=== PATIENT | male | born 1990 | race Caucasian/White ===

== ENCOUNTER 2020-09-11 08:32 | Emergency (ER) | payer OTHER ==
[~2020-09-11 08:32] MED LIST: BENTYL 20MG TAB20 MG PO; CARAFATE1 GM PO; HALDOL 5 MG TAB5 MG PO; MAALOX ADVANCE355 ML PO; OMEPRAZOLE20 M1 PO; ONDANSETRON ODT4 MG PO; PANTOPRAZOLE SO40 MG PO; PHENERGAN 12.12.5 M1 PO; PHENERGAN 12.12.5 MG PR; PHENERGAN 25 MG25 M1 PO; PHENERGAN 25 MG25 MG PR; PHENERGAN 50 MG50 MG PR; PHENERGAN25 MG/1 M1 TOP; PROTONIX 20 MG20 MG PO; PROTONIX40 MG PO; ZOFRAN ODT 4 MG4 MG PO; ZOFRAN ODT 4 MG4 MG SL; ZOFRAN4 MG PO; ZOFRAN8 MG PO
[2020-09-11 09:14] LABS: HEMOGLOBIN 12.4 gm/dl (14.0-17.5); RED BLOOD COUNT 4.25 M/UL (4.20-5.50); WHITE BLOOD COUNT 6.1 K/UL (4.5-11.0)
[2020-09-11 09:50] LABS: BUN/CREATININE RATIO 11 (0-10)
[2020-09-11] MEDS ORDERED: ZOFRAN 4 MG TAB4 MG PO (10:49)
== END 2020-09-11 11:05 | disposition home or self-care (01) ==
LOC: ER1 08:32
PROVIDERS: Emergency Medicine
DX: R10.9 Unspecified abdominal pain (principal); R11.10 Vomiting, unspecified; Z87.19 Personal history of other diseases of the digestive system
CPT/HCPCS: 80053; 81001; 83690; 85025; 96374; 99284; J2405; J7030

== ENCOUNTER 2020-09-14 09:22 | Emergency (ER) | payer OTHER ==
[~2020-09-14 09:22] MED LIST changes: +ZOFRAN 4 MG TAB4 MG PO
[2020-09-14 09:57] LABS: HEMOGLOBIN 12.9 gm/dl (14.0-17.5); RED BLOOD COUNT 4.43 M/UL (4.20-5.50); WHITE BLOOD COUNT 5.1 K/UL (4.5-11.0)
[2020-09-14 10:14] LABS: BUN/CREATININE RATIO 6 (0-10)
[2020-09-14] MEDS ORDERED: PHENERGAN 25 MG25 M1 PO (10:57)
== END 2020-09-14 11:05 | disposition home or self-care (01) ==
LOC: ER1 09:22
PROVIDERS: Physician Assistant
DX: K31.84 Gastroparesis (principal); Z79.899 Other long term (current) drug therapy
CPT/HCPCS: 80053; 82150; 83690; 85025; 96374; 99284; J2550; J7030

== ENCOUNTER 2020-09-27 12:06 | Emergency (ER) | payer OTHER ==
[2020-09-27 13:20] LABS: HEMOGLOBIN 12.7 gm/dl (14.0-17.5); RED BLOOD COUNT 4.39 M/UL (4.20-5.50); WHITE BLOOD COUNT 5.3 K/UL (4.5-11.0)
[2020-09-27 13:47] LABS: BUN/CREATININE RATIO 6 (0-10)
[2020-09-27] MEDS ORDERED: ONDANSETRON ODT4 MG SL (16:21)
[2020-09-27] MEDS ORDERED: PHENERGAN 25 MG25 M1 PO (16:21)
[2020-09-27] MEDS ORDERED: PROTONIX40 MG PO (16:21)
== END 2020-09-27 16:33 | disposition home or self-care (01) ==
LOC: ER1 12:06
PROVIDERS: Physician Assistant
DX: R10.13 Epigastric pain (principal); R11.2 Nausea with vomiting, unspecified; Z87.19 Personal history of other diseases of the digestive system; Z88.8 Allergy status to other drugs, medicaments and biological substances
CPT/HCPCS: 80053; 81001; 83690; 85025; 96374; 99284; C9113; J2405; J7030

== ENCOUNTER 2020-09-30 16:49 | Observation (INO) | payer OTHER ==
[~2020-09-30] VITALS: Ht 175.3 cm; Wt 72.6 kg
[~2020-09-30 16:49] MED LIST changes: +ONDANSETRON ODT4 MG SL
[2020-09-30 18:26] LABS: HEMOGLOBIN 12.5 gm/dl (14.0-17.5); RED BLOOD COUNT 4.26 M/UL (4.20-5.50); WHITE BLOOD COUNT 6.1 K/UL (4.5-11.0)
[2020-09-30 18:53] LABS: BUN/CREATININE RATIO 7 (0-10)
[2020-09-30] MEDS ORDERED: LINZESS145 MCG PO (20:27)
[2020-09-30] MEDS ORDERED: PROTONIX 40 MG40 M1 PO (20:28)
[2020-09-30] MEDS ORDERED: ZOFRAN4 MG PO (20:28)
[2020-09-30] MEDS ORDERED: AMOXICILLIN875 MG PO (20:29)
[2020-09-30] MEDS ORDERED: PHENERGAN 25 MG25 M1 PO (20:29)
[2020-09-30] MEDS ORDERED: CLARITHROMYCIN500 MG PO (20:30)
[2020-10-01 08:22] LABS: BUN/CREATININE RATIO 6 (0-10)
== END 2020-10-01 16:00 | disposition left against medical advice (07) ==
LOC: ER1 16:49 → MED SURG 4 20:23 → CDU 20:23 → MED SURG 4 22:03
PROVIDERS: Emergency Medicine; Internal Medicine; ADMIT Internal Medicine
DX: R11.2 Nausea with vomiting, unspecified (principal); F13.10 Sedative, hypnotic or anxiolytic abuse, uncomplicated; F11.10 Opioid abuse, uncomplicated; F17.290 Nicotine dependence, other tobacco product, uncomplicated; F12.10 Cannabis abuse, uncomplicated; Z88.8 Allergy status to other drugs, medicaments and biological substances; Z20.822 Contact with and (suspected) exposure to COVID-19
CPT/HCPCS: 36415; 80048; 80053; 80307; 81001; 82272; 83036; 83690; 85025; 96374; 96375; 96376; 99285; C9113; G0378; J1885; J2270; J2405; J2550; J2765; J3480; Q9967; U0002